=== PATIENT | male | born 2000 | race Caucasian/White ===

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

== ENCOUNTER 2019-01-08 15:14 | Emergency (ER) | payer OTHER | END 2019-01-08 17:53 | disposition home or self-care (01) | LOC: FTE 17:53 | DX: J22 Unspecified acute lower respiratory infection (principal) | CPT/HCPCS: 99283; Z7502 ==